=== PATIENT | female | born 2000 | race Caucasian/White ===

== ENCOUNTER 2018-09-15 23:15 | Emergency (ER) | payer OTHER ==
[2018-09-16] MEDS ORDERED: HYDROCODONE/ACETAMINOPHEN 5-325 MG TABLET PO ONE (00:47)
[2018-09-16] MEDS ORDERED: IBUPROFEN 600 MG TABLET PO ONE (00:47)
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
[2018-09-16 07:39] VITALS: BP 107/69
--- NOTE | 2018-09-16 10:22 | EKG REPORT ---
SEVERITY:- NORMAL ECG - SINUS RHYTHM : Confirmed by: Florence Perez MD 16-Sep-2018 10:21:16
== END 2018-09-16 07:40 | disposition home or self-care (01) ==
LOC: ER 23:15
DX: S20.219A Contusion of unspecified front wall of thorax, initial encounter (principal); R07.9 Chest pain, unspecified; V87.7XXA Person injured in collision between other specified motor vehicles (traffic), initial encounter
CPT/HCPCS: 71046; 81025; 93005; 93010; 99283